=== PATIENT | male | born 1975 | race Caucasian/White ===

== ENCOUNTER 2017-06-22 15:29 | Outpatient (CLI) | payer OTHER ==
--- NOTE | 2017-06-22 17:19 | MRI ---
LUMBAR SPINE MRI NONCONTRAST 06/22/17 INDICATION: Low back pain, lumbar radiculopathy, bilaterally. FINDINGS: Conus medullaris is normal in morphology terminating at L1 level. There is no significant abnormality of the imaged retroperitoneum. There is no evidence of significant extrinsic mass effect upon the th ecal sac, or neural foramina of the lumbar spine. No marrow edema. Disc space heights are preserved. No compression deformity or subluxation. IMPRESSION: Unremarkable noncontrast lumbar spine MRI. POS: [facility]
== END 2017-06-22 15:30 | disposition home or self-care (01) ==
LOC: SCSMRI 15:29
PROVIDERS: ATTEND Family Medicine
DX: M54.16 Radiculopathy, lumbar region (principal)
CPT/HCPCS: 72148